=== PATIENT | male | born 1955 | race African-American/Black ===

== ENCOUNTER 2018-04-18 13:00 | Outpatient (CLI) | payer OTHER ==
[~2018-04-18 13:00] MED LIST: ISOVUE-370 76%-LOCM 1 ML ONE
--- NOTE | 2018-04-18 15:46 | CT ---
CONTRAST ENHANCED CTA IMAGES, ABDOMEN, PELVIS AND BILATERAL LOWER EXTREMITY RUNOFF 04/18/18 HISTORY: Atherosclerosis bilateral legs with intermittent claudication. The patient states months of bilateral calf pain. 2D and 3D reconstructed images performed on an independent 3D workstation. There is extensive interstitial lung markings compatible with interstitial fibrotic changes. No evidence of free intraperitoneal air or fluid seen. The liver, spleen, gallbladder pancreas, adren al glands and kidneys are unremarkable. Atherosclerotic calcifications seen throughout the abdominal aorta. Atherosclerotic calcifications se en in the celiac artery without evidence of critical stenosis. No significant evidence of SMA stenosi s seen. Right and left renal arteries are patent. Inferior mesenteric artery is patent. ABDOMINAL AORTA: The abdominal aorta contains some atherosclerotic calcifications without evidence of high grade occlusion. RIGHT LOWER EXTREMITY: The right common iliac artery contains some atherosclerotic plaque extending i n to the right external iliac artery. There is some decreased caliber involving the origin of the rig ht external iliac artery approximately 40%. Calcified plaque seen throughout the right external inocencio c but no evidence of occlusion. Atherosclerotic plaque seen in the right common femoral artery measur ing up to 30%. The right superficial femoral artery is densely calcified and occludes in the mid SFA. The right femo ral profunda vessels are patent. Numerous femora profunda collaterals reconstitute the right SFA at t he level of the adductor hiatus. Calcified plaque are present in the right popliteal artery but resul ts in approximately 30- 40% stenosis without evidence of occlusion. Flow is seen in the right anterior tibial artery, right posterior tibial artery, and right peroneal a rteries all the way to their distal visualized aspects. LEFT LOWER EXTREMITY: Endovascular stent is seen in the left common iliac and left external iliac arteries. These are paten t. Calcified plaque seen in the left common femoral artery. There is complete occlusion of the entire course of the left superficial femoral artery. Numerous lef t lower extremity femora profunda collaterals are present which reconstitute the popliteal artery at the level of the adductor hiatus. There is flow seen in the left popliteal artery with some areas of approximately 25 to 30% calcified plaque along the left popliteal artery. There is flow seen distal t o the popliteal artery with good flow seen in the left anterior tibial artery, left posterior tibia, and left peroneal arteries. No significant evidence of calcified plaque seen in the post trifurcation arteries. 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 The aorta co ntains flow as do the stented iliac arteries. There is good post trifurcation runoff below the knee. POS: [facility]
== END 2018-04-18 13:01 | disposition home or self-care (01) ==
LOC: BICCT 13:00
PROVIDERS: ATTEND Thoracic Surgery (Cardiothoracic Vascular Surgery)
DX: I70.213 Atherosclerosis of native arteries of extremities with intermittent claudication, bilateral legs (principal)
CPT/HCPCS: 75635; 82565; Q9966

== ENCOUNTER 2019-10-25 08:22 | Outpatient (CLI) | payer MEDICARE, OTHER ==
[2019-10-25 16:24] LABS: Hemoglobin 13.5 g/dL (14.0-18.0); Mean Corpuscular HGB CONC 34.7 g/dL (32.0-36.0); Mean Corpuscular Hemoglobin 30.2 pg (27.0-31.0); Mean Corpuscular Volume 87.1 fL (78.0-98.0); Mean Platelet Volume 10.6 fL (7.4-10.4); Platelet Count 197 thou/uL (130-400); RBC Distribution Width 12.8 % (11.5-14.5); Red Blood Cell (RBC) Count 4.47 mill/uL (4.70-6.10)
[2019-10-25 16:33] LABS: Anion Gap 13 mmol/L (10-20); BUN (Urea Nitrogen) 13 mg/dL (8.4-25.7); Calc. Creatinine Clearance 0 mL/min (70-130); Carbon Dioxide 29 mmol/L (23-31); Chloride 101 mmol/L (98-107); Estimated GFR-MDRD 62; Glucose 128 mg/dL (80-115); Potassium 3.5 mmol/L (3.5-5.1); Sodium 139 mmol/L (136-145)
[2019-10-26 13:49] LABS: SARS-CoV-2 MS2 Positive; SARS-CoV-2 N Gene Negative; SARS-CoV-2 S Gene Negative; SARS-CoV-2 by NAA Not Detected (NotDetected); SARS-CoV-2 orf1ab Negative
== END 2019-10-25 08:23 | disposition home or self-care (01) ==
LOC: LABBT 08:22
PROVIDERS: ATTEND Thoracic Surgery (Cardiothoracic Vascular Surgery)
DX: Z01.812 Encounter for preprocedural laboratory examination (principal); Z20.828 Contact with and (suspected) exposure to other viral communicable diseases; I73.9 Peripheral vascular disease, unspecified
CPT/HCPCS: 80048; 85027; 86850; 86900; 86901; U0003; 87635

== ENCOUNTER 2019-10-25 13:30 | Inpatient (IN) | payer MEDICARE ==
[2019-10-25 16:24] LABS: Hemoglobin 13.5 g/dL (14.0-18.0); Mean Corpuscular HGB CONC 34.7 g/dL (32.0-36.0); Mean Corpuscular Hemoglobin 30.2 pg (27.0-31.0); Mean Corpuscular Volume 87.1 fL (78.0-98.0); Mean Platelet Volume 10.6 fL (7.4-10.4); Platelet Count 197 thou/uL (130-400); RBC Distribution Width 12.8 % (11.5-14.5); Red Blood Cell (RBC) Count 4.47 mill/uL (4.70-6.10)
[2019-10-25 16:33] LABS: Anion Gap 13 mmol/L (10-20); BUN (Urea Nitrogen) 13 mg/dL (8.4-25.7); Calc. Creatinine Clearance 0 mL/min (70-130); Carbon Dioxide 29 mmol/L (23-31); Chloride 101 mmol/L (98-107); Estimated GFR-MDRD 62; Glucose 128 mg/dL (80-115); Potassium 3.5 mmol/L (3.5-5.1); Sodium 139 mmol/L (136-145)
[2019-10-26 13:49] LABS: SARS-CoV-2 MS2 Positive; SARS-CoV-2 N Gene Negative; SARS-CoV-2 S Gene Negative; SARS-CoV-2 by NAA Not Detected (NotDetected); SARS-CoV-2 orf1ab Negative
[2019-10-30] MEDS ORDERED: Midazolam HCl 2 mg/2 ml Vial ONE (06:32)
[2019-10-30] MEDS ORDERED: Fentanyl 100 MCG/2 ML VIAL ONE ×3 (06:32→10:49)
[2019-10-30] MEDS ORDERED: Protamine Sulfate 50 MG/5 ML VIAL ONE (06:33)
[2019-10-30] MEDS ORDERED: Levofloxacin 500 mg/D5W 100 ml Premix Bag ONE (06:36)
[2019-10-30] MEDS ORDERED: Clindamycin/D5W 900 mg/50 ml Premix Bag ONE (06:36)
[2019-10-30] MEDS ORDERED: Heparin 5,000 UNITS/ML VIAL ONE (06:36)
[2019-10-30] MEDS ORDERED: Vecuronium 10 MG VIAL ONE ×2 (07:51→09:45)
[2019-10-30] MEDS ORDERED: Lidocaine 1% PF 5 ML VIAL ONE (09:45)
[2019-10-30] MEDS ORDERED: EPHEDRINE 25 MG/5 ML SYRINGE ONE (09:45)
[2019-10-30] MEDS ORDERED: Ketorolac Tromethamine 30 MG/ML VIAL ONE (09:45)
[2019-10-30] MEDS ORDERED: Dexamethasone 20 MG/5 ML VIAL ONE (09:45)
[2019-10-30] MEDS ORDERED: Ondansetron PF 4 MG/2 ML Vial ONE (09:45)
[2019-10-30] MEDS ORDERED: PHENYLEPHRINE-NS 100 MCG/ML 10 ML SYRINGE ONE (09:45)
[2019-10-30] MEDS ORDERED: PROPOFOL 200 MG/20 ML VIAL ONE (09:45)
[2019-10-30] MEDS ORDERED: Bupivacaine PF 0.5% 30 ML VIAL ONE (09:50)
[2019-10-30] MEDS ORDERED: Ondansetron PF 4 MG/2 ML Vial IVP PRN (10:08)
[2019-10-30] MEDS ORDERED: HYDROcodone/Acetaminophen 5/325 mg Tablet PO PRN (10:08)
[2019-10-30] MEDS ORDERED: Acetaminophen 325 MG TAB PO PRN (10:08)
[2019-10-30] MEDS ORDERED: Ondansetron HCl/PF 4 MG/2 ML Vial IVP PRN (10:14)
[2019-10-30] MEDS ORDERED: Sodium Chloride 0.9% 1,000 ML IV SCH (10:15)
[2019-10-30] MEDS: Ketorolac Tromethamine 30 MG/ML VIAL IVP SCH ×2 (11:32→18:15)
[2019-10-30] MEDS: Fentanyl 100 MCG/2 ML VIAL SLOW IVP PRN ×4 (11:33→18:21)
[2019-10-30 11:54] VITALS: BMI 30.5
--- NOTE | 2019-10-30 12:00 | OP ---
DATE OF PROCEDURE: 10/30/2019 PREOPERATIVE DIAGNOSIS: Claudication in bilateral lower extremities. PROCEDURES PERFORMED: Left common iliac stent with an 8 x 37 Express stent and then left common and profunda femoral endarterectomy with bovine patch angioplasty. ANESTHESIA: General. ESTIMATED BLOOD LOSS: Less than 100. DESCRIPTION OF PROCEDURE: After adequate anesthesia had been obtained, the patient was prepped and draped. Ultrasound had been used to identify common femoral artery as well as where it became external iliac and where the deep femoral came off prior to prepping and draping. CT scan had been reviewed as well as preop angios. Incision was then made exposing the common femoral artery. Dissection was carried up to the inguinal ligament and then medial and lateral circumflex femoral vessels were identified. It was felt that a clamp could be placed across the common femoral artery at the takeoff of the lateral circumflex femoral artery without impinging on the external iliac artery stent. A large profunda vessel was also identified. Following heparinization, a needle was inserted in the proximal common femoral artery and under fluoroscopy, a wire was advanced into the aorta. A long Turkmen marker 6-Turkmen sheath was then advanced and angiography of the left common iliac was obtained. It was felt that there was significant narrowing as compared to the right side with the left side being less than half the size of the right. A 7 x 40 balloon was initially used to inflate and then an 8 x 37 Express stent was deployed with the stent at the uppermost portion of the left common iliac artery with angiogram showing a good result. Following this, a clamp was applied across the proximal most common femoral artery at the level of the lateral circumflex femoral. Arteriotomy was then performed and there was no backbleeding from the deep profunda branches. It was totally occluded. There was more recent thrombus within the lumen of the common femoral artery. Endarterectomy was then performed, taking a nice portion out of the deep femoral branch and then having excellent backflow. Endarterectomy was then performed proximally as high as could be done to the level of the clamp. A bovine patch was then secured to the arteriotomy with a running 5-0 Prolene suture. Prior to completing the suture line, the vessels were backflushed and forward flushed, and then flow was restored. Protamine was given to reverse the heparin, and after obtaining good hemostasis, there was a good pulse in the femoral artery and the wound was then closed with interrupted layer x2 of 2-0 Vicryl suture and then the skin was closed. A 0.5% Marcaine was used to infiltrate the subcutaneous tissues. The patient is to be taken to the recovery room in guarded condition. Job ID: [id number]
[2019-10-30] MEDS: HYDROcodone/Acetaminophen 5/325 mg Tablet PO PRN ×2 (12:30→16:28)
[2019-10-30] MEDS: Clindamycin/D5W 900 MG in Premix Bag 1 BAG IVPB SCH ×2 (13:23→18:15)
[2019-10-30] MEDS ORDERED: ALPRAZolam 0.5 MG TAB PO SCH (21:00)
[2019-10-30] MEDS ORDERED: Atorvastatin Calcium 40 MG TAB PO SCH (21:00)
--- NOTE | 2019-10-30 22:20 | EKG ---
Test Reason : PREOP Blood Pressure : / mmHG Vent. Rate : 051 BPM Atrial Rate : 051 BPM P-R Int : 218 ms QRS Dur : 082 ms QT Int : 424 ms P-R-T Axes : 024 003 030 degrees QTc Int : 390 ms Sinus bradycardia with 1st degree A-V block Otherwise normal ECG No previous ECGs available Confirmed by Stone CONNER ([id number]) on 10/30/2019 10:20:34 PM Referred By: JOSSY Confirmed By:Stone CONNER
[2019-10-31] MEDS: Ketorolac Tromethamine 30 MG/ML VIAL IVP SCH ×2 (00:10→05:37)
[2019-10-31] MEDS: Clindamycin/D5W 900 MG in Premix Bag 1 BAG IVPB SCH ×2 (00:10→06:21)
[2019-10-31 07:42] VITALS: BP 104/69; TEMP 97.6
[2019-10-31] MEDS ORDERED: Losartan/Hydrochlorothiazide 100 mg/25 mg Tablet PO SCH (09:00)
[2019-10-31] MEDS ORDERED: Atenolol 25 MG TAB PO SCH (09:00)
[2019-10-31] MEDS ORDERED: Aspirin Chewable 81 MG TAB PO SCH (09:00)
[2019-10-31] MEDS ORDERED: Amlodipine 5 MG TAB PO SCH (09:00)
--- NOTE | 2019-10-31 15:51 | DIS ---
DATE OF ADMISSION: 10/30/2019 DATE OF DISCHARGE: 10/31/2019 The patient underwent a left common and profunda femoral endarterectomy with left common iliac stent 8 x 37. 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 Postoperatively, he did well except for some paresthesias over the anterior surface of his thigh, probably related to cutaneous nerve interruption. In any event, he will be discharged home today to resume his home medications and I will leave a prescription at his pharmacy for pain medicine. Discharge and followup instructions have been given. Job ID: [id number]
== END 2019-10-31 11:30 | disposition home or self-care (01) | DRG 271 ==
LOC: SURG A 10-30 05:52 → SJJU 10-30 11:27
PROVIDERS: ADMIT Thoracic Surgery (Cardiothoracic Vascular Surgery); ATTEND Thoracic Surgery (Cardiothoracic Vascular Surgery)
PROC: 047D3DZ Dilation of Left Common Iliac Artery with Intraluminal Device, Percutaneous Approach (ICD-10-PCS; principal; 2019-10-30)
PROC: 04CL3ZZ Extirpation of Matter from Left Femoral Artery, Percutaneous Approach (ICD-10-PCS; 2019-10-30)
PROC: 04UL3KZ Supplement Left Femoral Artery with Nonautologous Tissue Substitute, Percutaneous Approach (ICD-10-PCS; 2019-10-30)
DX: I73.9 Peripheral vascular disease, unspecified (principal); I74.3 Embolism and thrombosis of arteries of the lower extremities
CPT/HCPCS: 76000; 80048; 85027; 86850; 86900; 86901; 87635; 93005; 93010; C1874; J1100; J1642; J1644; J1885; J1956; J2250; J2405; J2704; J2720; J3010; J3490; S0020; U0003

== ENCOUNTER 2019-11-28 07:28 | Outpatient (CLI) | payer MEDICARE, OTHER ==
[2019-11-28 15:58] LABS: Hemoglobin 14.1 g/dL (14.0-18.0); Mean Corpuscular HGB CONC 34.2 g/dL (32.0-36.0); Mean Corpuscular Hemoglobin 29.6 pg (27.0-31.0); Mean Corpuscular Volume 86.8 fL (78.0-98.0); Platelet Count 224 thou/uL (130-400); RBC Distribution Width 12.7 % (11.5-14.5); Red Blood Cell (RBC) Count 4.77 mill/uL (4.70-6.10); White Blood Cell (WBC) Count 9.5 thou/uL (4.8-10.8)
[2019-11-28 17:30] LABS: Anion Gap 15 mmol/L (10-20); BUN (Urea Nitrogen) 8 mg/dL (8.4-25.7); Calc. Creatinine Clearance 0 mL/min (70-130); Calcium 8.9 mg/dL (7.8-10.44); Carbon Dioxide 23 mmol/L (23-31); Chloride 103 mmol/L (98-107); Estimated GFR-MDRD 72; Glucose 97 mg/dL (80-115); Potassium 3.9 mmol/L (3.5-5.1); Sodium 137 mmol/L (136-145)
[2019-11-29 12:40] LABS: SARS-CoV-2 MS2 Positive; SARS-CoV-2 N Gene Negative; SARS-CoV-2 S Gene Negative; SARS-CoV-2 by NAA Not Detected (NotDetected); SARS-CoV-2 orf1ab Negative
== END 2019-11-28 07:29 | disposition home or self-care (01) ==
LOC: LABBT 07:28
PROVIDERS: ATTEND Thoracic Surgery (Cardiothoracic Vascular Surgery)
DX: Z01.812 Encounter for preprocedural laboratory examination (principal); I73.9 Peripheral vascular disease, unspecified; Z20.828 Contact with and (suspected) exposure to other viral communicable diseases
CPT/HCPCS: 80048; 85027; 86850; 86900; 86901; U0003; 87635

== ENCOUNTER 2019-11-28 13:00 | Inpatient (IN) | payer MEDICARE, OTHER ==
[2019-11-29 15:39] VITALS: BMI 30.5
[2019-12-03] MEDS ORDERED: Heparin 5,000 UNITS/ML VIAL ONE (06:38)
[2019-12-03] MEDS ORDERED: Protamine Sulfate 50 MG/5 ML VIAL ONE (06:38)
[2019-12-03] MEDS ORDERED: Fentanyl 100 MCG/2 ML VIAL ONE ×3 (06:49→10:51)
[2019-12-03] MEDS ORDERED: Clindamycin/D5W 900 mg/50 ml Premix Bag ONE (07:36)
[2019-12-03] MEDS ORDERED: Bupivacaine PF 0.5% 30 ML VIAL ONE (08:57)
[2019-12-03] MEDS ORDERED: Insulin Regular 300 UNITS/3 ML VIAL SC PRN (09:47)
[2019-12-03] MEDS ORDERED: Ondansetron PF 4 MG/2 ML Vial IVP PRN (09:47)
[2019-12-03] MEDS ORDERED: Fentanyl 100 MCG/2 ML VIAL SLOW IVP PRN (09:47)
[2019-12-03] MEDS ORDERED: HYDROcodone/Acetaminophen 5/325 mg Tablet PO PRN (09:47)
[2019-12-03] MEDS ORDERED: Acetaminophen 325 MG TAB PO PRN (09:47)
[2019-12-03] MEDS ORDERED: Ondansetron HCl/PF 4 MG/2 ML Vial IVP PRN (09:54)
[2019-12-03] MEDS ORDERED: Promethazine HCl 25 MG/ML VIAL IM PRN (09:54)
[2019-12-03] MEDS ORDERED: Promethazine HCl 25 MG/ML VIAL SLOW IVP PRN (09:54)
--- NOTE | 2019-12-03 11:42 | OP ---
DATE OF PROCEDURE: 12/03/2019 PREOPERATIVE DIAGNOSIS: Claudication, right leg. POSTOPERATIVE DIAGNOSIS: Claudication, right leg. PROCEDURE PERFORMED: Right common femoral endarterectomy with bovine patch angioplasty. ANESTHESIA: General. ESTIMATED BLOOD LOSS: Less than 100. DESCRIPTION OF PROCEDURE: After adequate anesthesia had been obtained, incision was made in the right groin and carried through subcutaneous tissues down to the common femoral artery. It was mobilized up under the inguinal ligament proximal to the lateral circumflex femoral artery cephalad to this and about even with the medial branch that became the epigastric artery. Distally the common femoral artery branched into a large profunda branch, which was also controlled as was the origin of the SFA. Following heparinization with 7500 units of heparin, clamps were applied to the external iliac artery as well as the profunda. Superficial femoral artery had no backflow upon opening the common femoral artery. There was a large bulky atherosclerotic plaque that was near occlusive in the mid to distal common femoral artery. Endarterectomy was then performed from the orifice of the SFA and profunda extending proximally up to about the level of the lateral circumflex femoral artery where the plaque was transected. Following this, the area was irrigated and any loose debris removed. A bovine pericardial patch was then used to close the arteriotomy. Prior to completing the suture line, vessels were backflushed and forward flushed. The area was thoroughly irrigated, following which, the wound was closed in several layers using a running 2-0 Vicryl suture. Subcuticular suture was used on the skin. The patient tolerated the procedure well and heparin was partially reversed with protamine. Job ID: [id number]
[2019-12-03] MEDS: Sodium Chloride 0.9% 1,000 ML IV SCH (12:23)
[2019-12-03] MEDS: Ketorolac Tromethamine 30 MG/ML VIAL IVP SCH ×2 (12:24→17:14)
[2019-12-03] MEDS ORDERED: Glycopyrrolate 0.2 MG/ML 5 ML SYRINGE ONE (12:28)
[2019-12-03] MEDS ORDERED: Dexamethasone 20 MG/5 ML VIAL ONE (12:28)
[2019-12-03] MEDS ORDERED: Lidocaine 1% PF 5 ML VIAL ONE (12:28)
[2019-12-03] MEDS ORDERED: PROPOFOL 200 MG/20 ML VIAL ONE (12:28)
[2019-12-03] MEDS ORDERED: Ondansetron PF 4 MG/2 ML Vial ONE (12:28)
[2019-12-03] MEDS ORDERED: Rocuronium Bromide 10 MG/ML (10ML VIAL) ONE (12:28)
[2019-12-03] MEDS: HYDROcodone/Acetaminophen 5/325 mg Tablet PO PRN ×3 (12:28→20:54)
[2019-12-03] MEDS: Clindamycin/D5W 900 MG in Premix Bag 1 BAG IVPB SCH ×2 (15:01→20:53)
[2019-12-03] MEDS ORDERED: ALPRAZolam 0.5 MG TAB PO SCH (21:00)
[2019-12-03] MEDS ORDERED: Atorvastatin Calcium 40 MG TAB PO SCH (21:00)
[2019-12-04] MEDS: Ketorolac Tromethamine 30 MG/ML VIAL IVP SCH ×2 (00:36→05:35)
[2019-12-04] MEDS: Clindamycin/D5W 900 MG in Premix Bag 1 BAG IVPB SCH ×2 (03:10→07:54)
[2019-12-04] MEDS: Sodium Chloride 0.9% 1,000 ML IV SCH (05:33)
[2019-12-04 08:28] VITALS: BP 105/68; TEMP 97.9
[2019-12-04] MEDS ORDERED: Amlodipine 5 MG TAB PO SCH (09:00)
[2019-12-04] MEDS ORDERED: Aspirin 81 mg Enteric Coated Tablet PO SCH (09:00)
[2019-12-04] MEDS ORDERED: Clopidogrel Bisulfate 75 MG TAB PO SCH (09:00)
[2019-12-04] MEDS ORDERED: Atenolol 25 MG TAB PO SCH (09:00)
[2019-12-04] MEDS ORDERED: FLU VACC QS2020-21(65YR UP)/PF 240 MCG/0.7 ML SYRINGE IM ONE (09:00)
[2019-12-04] MEDS ORDERED: Losartan/Hydrochlorothiazide 100 mg/25 mg Tablet PO SCH (09:00)
--- NOTE | 2019-12-04 14:12 | DIS ---
DATE OF ADMISSION: 12/03/2019 DATE OF DISCHARGE: 12/04/2019 The patient was admitted to the hospital, where he underwent right femoral endarterectomy. His preoperative creatinine was 1.22 and his sugar was 97 and 121 while in the hospital with a normal hemoglobin. Postoperatively, the patient complained of some discomfort in his left eye and it was felt that he probably had a corneal abrasion and an eye patch was placed on that with improvement in symptoms. His right groin incision was clean, dry, and not swollen at the time of discharge. He has minimal pain and stated that he had less discomfort than the surgical procedure on the other side. He was having a slightly low blood pressure of about 100 in the hospital and I have asked him to hold his amlodipine at home and check his blood pressures and I will follow up with him in 2 to 3 weeks. Job ID: [id number]
== END 2019-12-04 09:40 | disposition home or self-care (01) | DRG 254 ==
LOC: SURG A 12-03 05:43
PROVIDERS: ADMIT Thoracic Surgery (Cardiothoracic Vascular Surgery); ATTEND Thoracic Surgery (Cardiothoracic Vascular Surgery)
PROC: 04CK0ZZ Extirpation of Matter from Right Femoral Artery, Open Approach (ICD-10-PCS; principal; 2019-12-03)
PROC: 04UK0KZ Supplement Right Femoral Artery with Nonautologous Tissue Substitute, Open Approach (ICD-10-PCS; 2019-12-03)
PROC: 3E02340 Introduction of Influenza Vaccine into Muscle, Percutaneous Approach (ICD-10-PCS; 2019-12-03)
DX: I70.211 Atherosclerosis of native arteries of extremities with intermittent claudication, right leg (principal); Z20.828 Contact with and (suspected) exposure to other viral communicable diseases; I10 Essential (primary) hypertension; E78.5 Hyperlipidemia, unspecified; J30.2 Other seasonal allergic rhinitis; I65.29 Occlusion and stenosis of unspecified carotid artery; Z23 Encounter for immunization; Z87.891 Personal history of nicotine dependence; Z88.8 Allergy status to other drugs, medicaments and biological substances; Z88.1 Allergy status to other antibiotic agents
CPT/HCPCS: 36416; 90471; 90662; G0008; J0690; J1100; J1642; J1644; J1885; J2405; J2704; J2720; J3010; J3490; S0020